=== PATIENT | female | born 1990 | race American Indian/Alaskan Native ===

== ENCOUNTER 2017-12-10 16:22 | Emergency (ER) | payer MEDICAID ==
[2017-12-10 17:41] LABS: HCG Qualitative,Urine Negative (Negative)
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
[2017-12-10] MEDS ORDERED: MOTRIN PO ONE (22:52)
[2017-12-10] MEDS ORDERED: TYLENOL #3 PO ONE (22:55)
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
[2017-12-10 23:14] VITALS: BP 160/103
== END 2017-12-10 23:12 | disposition home or self-care (01) ==
LOC: ED 16:22
DX: S63.601A Unspecified sprain of right thumb, initial encounter (principal); I10 Essential (primary) hypertension; F17.200 Nicotine dependence, unspecified, uncomplicated; Y08.89XA Assault by other specified means, initial encounter; Y93.89 Activity, other specified; Y92.89 Other specified places as the place of occurrence of the external cause; Y99.8 Other external cause status
CPT/HCPCS: 81025; 99284